=== PATIENT | female | born 1975 | race Caucasian/White ===

== ENCOUNTER → 2016-12-29 | Outpatient (CLI) | payer MEDICAID ==
[~2016-12-29] MED LIST: ASPI1TAB15 PO; ATOR40TA75 PO; CLON0.2T; FOLI1TAB4; KLON0.5T PO; LISI10TA4 PO; METO50TA7 PO; PLAV1TAB2 PO; SERT50TA PO; TYLE325C PO; ZOLO25TA
== END ==
LOC: M OUTALCOH 07:42
PROVIDERS: ATTEND Psychiatry & Neurology Psychiatry
DX: F10.10 Alcohol abuse, uncomplicated (principal)

== ENCOUNTER → 2017-01-12 | Outpatient (RCR) | payer MEDICAID | LOC: M OUTALCOH 01-05 10:46 | PROVIDERS: ATTEND Psychiatry & Neurology Psychiatry | DX: F10.10 Alcohol abuse, uncomplicated (principal) ==

== ENCOUNTER 2017-02-27 13:17 | Emergency (ER) | payer MEDICAID, OTHER ==
[~2017-02-27] VITALS: Ht 165.1 cm; Wt 56.4 kg
[2017-02-27] MEDS ORDERED: ZOLO25TA (13:36)
[2017-02-27] MEDS ORDERED: CLON0.2T (13:36)
[2017-02-27] MEDS ORDERED: FOLI1TAB4 (13:36)
[2017-02-27] MEDS ORDERED: LORazepam 2 MG/ML VIAL (J2060) IV STA (14:18)
[2017-02-27] MEDS ORDERED: ONDANSETRON 4MG/2ML VIAL (J2405) IV ONE (14:30)
[2017-02-27] MEDS ORDERED: NS 1,000 ML IV ONE ×2 (14:30→16:45)
[2017-02-27 14:56] LABS: BASO % 0.4 % (0.0-1.0); EOS % 0.1 % (0.0-3.0); LARGE UNSTAINED CELL # 0.1 K/mm3 (0.0-0.4); LARGE UNSTAINED CELL % 1.5 % (0.0-4.0); LYMPH # 1.3 K/mm3 (1.5-4.5); LYMPH % 14.5 % (24.0-44.0); MEAN CORPUSCULAR HEMOGLOBIN 33.4 pg (27.0-33.0); MEAN CORPUSCULAR HGB CONC 33.1 g/dl (32.0-36.5); MEAN CORPUSCULAR VOLUME 100.9 fl (80.0-96.0); MONO # 0.4 K/mm3 (0.0-0.8); NEUTROPHILS # 6.5 K/mm3 (1.8-7.7); NEUTROPHILS % 78.5 % (36.0-66.0); PLATELET COUNT, AUTOMATED 213 k/mm3 (150-450); RED CELL DISTRIBUTION WIDTH 13.3 % (11.5-14.5); WHITE BLOOD COUNT 8.2 K/mm3 (4.0-10.0)
[2017-02-27 15:24] LABS: ALBUMIN 4.5 GM/DL (3.2-5.2); ALKALINE PHOSPHATASE 183 U/L (45-117); ALT/SGPT 27 U/L (12-78); ANION GAP 14 MEQ/L (8-16); AST/SGOT 21 U/L (15-37); BILIRUBIN,DIRECT 0.3 MG/DL (0.0-0.2); BILIRUBIN,TOTAL 1.2 MG/DL (0.2-1.0); BLOOD UREA NITROGEN 16 MG/DL (7-18); CALCIUM LEVEL 9.6 MG/DL (8.5-10.1); CARBON DIOXIDE LEVEL 26 MEQ/L (21-32); CHLORIDE LEVEL 99 MEQ/L (98-107); CREATININE FOR GFR 0.68 MG/DL (0.55-1.02); GLOMERULAR FILTRATION RATE > 60.0 (>58); GLUCOSE, FASTING 136 MG/DL (70-105); POTASSIUM SERUM 3.8 MEQ/L (3.5-5.1); SODIUM LEVEL 139 MEQ/L (136-145); TOTAL PROTEIN 8.6 GM/DL (6.4-8.2)
[2017-02-27 16:09] LABS: CONTROL LINE HCG INT CTR LINE PRESENT
[2017-02-27] MEDS ORDERED: TYLE325C PO (16:36)
[2017-02-27] MEDS ORDERED: ASPIRIN 81 MG CHEW TABLET PO ONE (17:30)
[2017-02-27] MEDS ORDERED: ISOVUE-370 76% 100ML VIAL (Q9967) As Ordered ONE (17:42)
--- NOTE | 2017-02-27 18:14 | REP ---
Clinical: Chest and epigastric pain . Technique: Axial contrast enhanced images from the thoracic inlet to the upper abdomen using 100 ml Isovue 370 intravenous contrast material with multiplanar re-formations. Findings: Satisfactory enhancement of the pulmonary vasculature is achieved and no filling defects are identified to suggest pulmonary embolus. Further evaluation of the mediastinum demonstrates normal thoracic aorta, heart and pericardium. The bilateral lung dejesus demonstrate very minimal apical emphysematous changes as well as minimal scattered scarring and trace bibasilar atelectasis (left greater than right). No pleural effusion. No pneumothorax. Tracheobronchial tree is patent. No nodule or mass lesion is identified. No adenopathy noted. Surrounding musculoskeletal structures intact Impression: No evidence for pulmonary embolus. Trace bibasilar atelectasis (left greater than right). No acute mediastinal or pleural parenchymal process. Signed by Bentley Oreilly MD 02/27/2017 06:06 P
[2017-02-27] MEDS ORDERED: cloNIDine 0.2 MG TAB PO ONE (18:30)
[2017-02-27 18:32] VITALS: BP 158/99
[2017-02-27] MEDS ORDERED: LABETALOL HCL 100 MG/20 ML VIAL IV STA (18:48)
[2017-02-27 20:59] VITALS: BP 108/73
[2017-02-27 21:27] LABS: METHADONE URINE NEGATIVE (NEGATIVE)
--- NOTE | 2017-02-28 17:21 | ECGEPIP ---
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
--- NOTE | 2017-02-28 17:23 | ECGEPIP ---
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
== END 2017-02-27 21:21 | disposition short-term general hospital (02) ==
LOC: M ED 13:17
DX: R11.10 Vomiting, unspecified (principal); R94.31 Abnormal electrocardiogram [ECG] [EKG]; F43.12 Post-traumatic stress disorder, chronic
CPT/HCPCS: 36415; 71275; 80048; 80076; 80307; 82550; 82553; 83690; 84703; 85025; 93000; 96361; 96374; 96375; 99285; J2060; J2405; Q9967

== ENCOUNTER 2017-04-09 13:38 | Emergency (ER) | payer OTHER ==
[~2017-04-09] VITALS: Ht 167.6 cm; Wt 56.0 kg
[~2017-04-09 13:38] MED LIST changes: -ASPI1TAB15 PO; -ATOR40TA75 PO; -KLON0.5T PO; -LISI10TA4 PO; -METO50TA7 PO; -PLAV1TAB2 PO; -SERT50TA PO
[2017-04-09] MEDS ORDERED: KLON0.5T PO (14:19)
[2017-04-09 15:15] LABS: MEAN CORPUSCULAR HEMOGLOBIN 32.7 pg (27.0-33.0); MEAN CORPUSCULAR HGB CONC 33.9 g/dl (32.0-36.5); MEAN CORPUSCULAR VOLUME 96.3 fl (80.0-96.0); PLATELET COUNT, AUTOMATED 246 10^3/uL (150-450); RED CELL DISTRIBUTION WIDTH 13.1 % (11.5-14.5)
[2017-04-09] MEDS ORDERED: PLAV1TAB2 PO (15:18)
[2017-04-09] MEDS ORDERED: SERT50TA PO (15:18)
[2017-04-09] MEDS ORDERED: METO50TA7 PO (15:18)
[2017-04-09] MEDS ORDERED: LISI10TA4 PO (15:18)
[2017-04-09] MEDS ORDERED: ATOR40TA75 PO (15:18)
[2017-04-09] MEDS ORDERED: ASPI1TAB15 PO (15:18)
[2017-04-09 15:35] LABS: METHADONE URINE NEGATIVE (NEGATIVE)
[2017-04-09 15:47] LABS: ALBUMIN 3.5 GM/DL (3.2-5.2); ALBUMIN/GLOBULIN RATIO 1.03 (1.00-1.93); ALKALINE PHOSPHATASE 190 U/L (45-117); ALT/SGPT 47 U/L (12-78); ANION GAP 6 MEQ/L (8-16); AST/SGOT 12 U/L (15-37); BILIRUBIN,DIRECT < 0.1 MG/DL (0.0-0.2); BILIRUBIN,TOTAL 0.2 MG/DL (0.2-1.0); BLOOD UREA NITROGEN 3 MG/DL (7-18); CALCIUM LEVEL 8.2 MG/DL (8.5-10.1); CARBON DIOXIDE LEVEL 32 MEQ/L (21-32); CHLORIDE LEVEL 103 MEQ/L (98-107); CREATININE FOR GFR 0.54 MG/DL (0.55-1.02); GLOMERULAR FILTRATION RATE > 60.0 (>58); GLUCOSE, FASTING 113 MG/DL (70-105); POTASSIUM SERUM 3.8 MEQ/L (3.5-5.1); SODIUM LEVEL 141 MEQ/L (136-145); TOTAL PROTEIN 6.9 GM/DL (6.4-8.2)
[2017-04-09] MEDS ORDERED: ATORVASTATIN 20 MG TAB PO ONE (21:30)
[2017-04-09 23:15] VITALS: BP 106/74
== END 2017-04-09 23:20 | disposition home or self-care (01) ==
LOC: M ED 13:38
DX: F10.220 Alcohol dependence with intoxication, uncomplicated (principal); F33.9 Major depressive disorder, recurrent, unspecified; F41.9 Anxiety disorder, unspecified; F43.10 Post-traumatic stress disorder, unspecified; F17.210 Nicotine dependence, cigarettes, uncomplicated

== ENCOUNTER 2017-06-14 02:02 | Emergency (ER) | payer OTHER ==
[2017-06-14 03:16] LABS: BASO # 0.1 10^3/uL (0.0-0.2); BASO % 0.4 % (0.0-1.0); EOS # 0.3 10^3/uL (0.0-0.50); EOS % 2.1 % (0.0-3.0); HEMATOCRIT 37.2 % (36.0-47.0); HEMOGLOBIN 12.7 g/dl (12.0-16.0); IMMATURE GRANULOCYTE # 0.1 10^3/uL (0-0); IMMATURE GRANULOCYTE % 0.5 % (0-0); LYMPH % 17.3 % (24.0-44.0); MEAN CORPUSCULAR HGB CONC 34.1 g/dl (32.0-36.5); MEAN CORPUSCULAR VOLUME 99.7 fl (80.0-96.0); MONO # 0.5 10^3/uL (0.0-0.8); MONO % 4.3 % (0.0-5.0); NEUTROPHILS # 8.8 10^3/uL (1.8-7.7); NEUTROPHILS % 75.4 % (36.0-66.0); PLATELET COUNT, AUTOMATED 162 10^3/uL (150-450); RED BLOOD COUNT 3.73 10^6/uL (4.00-5.40); RED CELL DISTRIBUTION WIDTH 15.9 % (11.5-14.5); WHITE BLOOD COUNT 11.7 10^3/uL (4.0-10.0)
[2017-06-14] MEDS: ONDANSETRON 4MG/2ML VIAL (J2405) IV (03:16)
[2017-06-14] MEDS: LORazepam 2 MG/ML VIAL (J2060) IV (03:17)
[2017-06-14 03:41] LABS: ANION GAP 11 MEQ/L (8-16); BLOOD UREA NITROGEN 16 MG/DL (7-18); CALCIUM LEVEL 8.5 MG/DL (8.5-10.1); CARBON DIOXIDE LEVEL 28 MEQ/L (21-32); CHLORIDE LEVEL 99 MEQ/L (98-107); CK-MB VALUE MASS 2.2 NG/ML (0.0-3.6); CPK CREATINE PHOSPHOKINASE 129 U/L (26-192); GLOMERULAR FILTRATION RATE > 60.0 (>58); GLUCOSE, FASTING 108 MG/DL (70-105); POTASSIUM SERUM 3.2 MEQ/L (3.5-5.1); SODIUM LEVEL 138 MEQ/L (136-145); TROPONIN I 0.02 NG/ML (< 0.10)
[2017-06-14 06:00] LABS: ETHYL ALCOHOL (ETHANOL) < 0.003 % (0.000-0.010)
[2017-06-14] MEDS: METOCLOPRAMIDE INJ 10MG/2ML VIAL (J2765) IV (08:39)
[2017-06-14 10:13] LABS: CK-MB VALUE MASS 2.9 NG/ML (0.0-3.6); CPK CREATINE PHOSPHOKINASE 111 U/L (26-192); MB/CK RELATIVE INDEX 2.61 (< OR =4); TROPONIN I 0.03 NG/ML (< 0.10)
== END 2017-06-14 11:17 | disposition home or self-care (01) ==
LOC: M ED 02:02
DX: R07.9 Chest pain, unspecified (principal); R11.2 Nausea with vomiting, unspecified; I51.9 Heart disease, unspecified; Z79.899 Other long term (current) drug therapy; Z79.82 Long term (current) use of aspirin; Z79.01 Long term (current) use of anticoagulants; Z88.1 Allergy status to other antibiotic agents; Z88.2 Allergy status to sulfonamides; F17.210 Nicotine dependence, cigarettes, uncomplicated
CPT/HCPCS: J2405

== ENCOUNTER 2018-03-28 08:53 | Emergency (ER) | payer OTHER ==
[2018-03-28] MEDS: ALPRAZolam 0.25 MG TAB PO (09:15)
[2018-03-28] MEDS: SUCRALFATE SUSP 1GM/10ML UD PO (09:15)
[2018-03-28] MEDS: NITROGLYCERIN 0.3 MG SUBL TAB SL ×2 (09:20→09:28)
[2018-03-28 09:24] LABS: BASO # 0.1 10^3/uL (0.0-0.2); BASO % 1.1 % (0.0-1.0); EOS # 0.1 10^3/uL (0.0-0.50); EOS % 0.8 % (0.0-3.0); HEMATOCRIT 39.5 % (36.0-47.0); HEMOGLOBIN 13.8 g/dl (12.0-15.5); IMMATURE GRANULOCYTE % 0.3 % (0-3.0); LYMPH # 1.5 10^3/uL (1.5-4.5); LYMPH % 19.8 % (24.0-44.0); MEAN CORPUSCULAR HEMOGLOBIN 35.3 pg (27.0-33.0); MEAN CORPUSCULAR HGB CONC 34.9 g/dl (32.0-36.5); MONO # 0.4 10^3/uL (0.0-0.8); MONO % 4.8 % (0.0-5.0); NEUTROPHILS # 5.4 10^3/uL (1.8-7.7); NEUTROPHILS % 73.2 % (36.0-66.0); PLATELET COUNT, AUTOMATED 205 10^3/uL (150-450); RED BLOOD COUNT 3.91 10^6/uL (4.00-5.40); RED CELL DISTRIBUTION WIDTH 15.2 % (11.5-14.5); WHITE BLOOD COUNT 7.4 10^3/uL (4.0-10.0)
[2018-03-28 09:38] LABS: INR 1.23; PROTHROMBIN TIME 15.7 SECONDS (12.1-14.4)
[2018-03-28 10:17] LABS: ALBUMIN 3.7 GM/DL (3.2-5.2); ALBUMIN/GLOBULIN RATIO 1.06 (1.00-1.93); ALKALINE PHOSPHATASE 159 U/L (45-117); ALT/SGPT 22 U/L (12-78); ANION GAP 11 MEQ/L (8-16); AST/SGOT 21 U/L (7-37); BILIRUBIN,DIRECT 0.1 MG/DL (0.0-0.2); BILIRUBIN,TOTAL 0.4 MG/DL (0.2-1.0); BLOOD UREA NITROGEN 7 MG/DL (7-18); CALCIUM LEVEL 8.9 MG/DL (8.5-10.1); CARBON DIOXIDE LEVEL 34 MEQ/L (21-32); CHLORIDE LEVEL 97 MEQ/L (98-107); CK-MB VALUE MASS < 1.0 NG/ML (<3.6); CPK CREATINE PHOSPHOKINASE 71 U/L (26-192); CREATININE FOR GFR 0.75 MG/DL (0.55-1.30); ETHYL ALCOHOL (ETHANOL) 0.006 % (0.000-0.010); GLOMERULAR FILTRATION RATE > 60.0 (>58); GLUCOSE, FASTING 113 MG/DL (70-100); LIPASE 161 U/L (73-393); MAGNESIUM LEVEL 1.8 MG/DL (1.8-2.4); MB/CK RELATIVE INDEX 1.41 (< OR =4); NT-PRO BNP 880 PG/ML (<125); POTASSIUM SERUM 2.8 MEQ/L (3.5-5.1); SODIUM LEVEL 142 MEQ/L (136-145); THYROID STIMULATING HORMONE 0.957 uIU/ML (0.358-3.740); TOTAL PROTEIN 7.2 GM/DL (6.4-8.2); TROPONIN I < 0.02 NG/ML (< 0.10)
[2018-03-28] MEDS: PANTOPRAZOLE 40MG INJ (PROTONIX) (C9113) IV (10:40)
[2018-03-28] MEDS: GI COCKTAIL 50ML BTL(HYOSCYAMINE/MAALOX/LIDOCAINE VISCOUS)(1:3:1) PO (10:40)
[2018-03-28] MEDS: METOPROLOL TART 50 MG TAB PO (10:41)
[2018-03-28] MEDS: POTASSIUM CHLORIDE 10 MEQ SR TABLET PO ×2 (10:41→16:30)
[2018-03-28 14:36] LABS: CK-MB VALUE MASS < 1.0 NG/ML (<3.6); CPK CREATINE PHOSPHOKINASE 57 U/L (26-192); MB/CK RELATIVE INDEX 1.75 (< OR =4); TROPONIN I < 0.02 NG/ML (< 0.10)
== END 2018-03-28 17:08 | disposition home or self-care (01) ==
LOC: M ED 08:53
DX: E87.6 Hypokalemia (principal); R10.9 Unspecified abdominal pain; R94.31 Abnormal electrocardiogram [ECG] [EKG]; I11.9 Hypertensive heart disease without heart failure; E78.5 Hyperlipidemia, unspecified; F33.9 Major depressive disorder, recurrent, unspecified; F41.9 Anxiety disorder, unspecified; F43.10 Post-traumatic stress disorder, unspecified; F17.200 Nicotine dependence, unspecified, uncomplicated; Z79.01 Long term (current) use of anticoagulants; Z79.82 Long term (current) use of aspirin; Z82.49 Family history of ischemic heart disease and other diseases of the circulatory system; Z88.1 Allergy status to other antibiotic agents; Z88.2 Allergy status to sulfonamides
CPT/HCPCS: C9113

== ENCOUNTER 2018-12-01 08:29 | Emergency (ER) | payer OTHER ==
[~2018-12-01] VITALS: Ht 167.6 cm; Wt 57.7 kg
[~2018-12-01 08:29] MED LIST changes: +ASPI1TAB15 PO; +ASPI81TAEC PO; +ATOR40TA75 PO; +FOLI1TAB11; -FOLI1TAB4; +KLON0.5T PO; +LISI10TA4 PO; +METO50TA7 PO; +PLAV1TAB2 PO; +PROM50TA4 PO; +SERT-141 PO; +SUCR1SS PO
[2018-12-01] MEDS ORDERED: HYDR-3363 PO (08:47)
[2018-12-01] MEDS ORDERED: TRAZ-163 PO (08:47)
[2018-12-01] MEDS ORDERED: ASPIRIN 81 MG CHEW TABLET PO ONE (09:00)
[2018-12-01 09:18] LABS: BASO # 0.1 10^3/uL (0.0-0.2); BASO % 0.7 % (0.0-1.0); EOS % 0.2 % (0.0-3.0); HEMOGLOBIN 13.7 g/dl (12.0-15.5); LYMPH # 2.4 10^3/uL (1.5-4.5); LYMPH % 21.3 % (24.0-44.0); MEAN CORPUSCULAR HEMOGLOBIN 34.1 pg (27.0-33.0); MEAN CORPUSCULAR HGB CONC 35.1 g/dl (32.0-36.5); MONO # 0.5 10^3/uL (0.0-0.8); MONO % 4.7 % (0.0-5.0); NEUTROPHILS # 8.1 10^3/uL (1.8-7.7); NEUTROPHILS % 72.8 % (36.0-66.0); PLATELET COUNT, AUTOMATED 171 10^3/uL (150-450); RED BLOOD COUNT 4.02 10^6/uL (4.00-5.40); WHITE BLOOD COUNT 11.1 10^3/uL (4.0-10.0)
[2018-12-01] MEDS: NITROGLYCERIN 0.4 MG SUBL TABLET SL PRN ×3 (09:24→16:35)
[2018-12-01 09:43] LABS: INR 1.13; PROTHROMBIN TIME 14.2 SECONDS (11.8-14.0)
[2018-12-01] MEDS ORDERED: GI COCKTAIL 50ML BTL(HYOSCYAMINE/MAALOX/LIDOCAINE VISCOUS)(1:3:1) PO ONE (09:45)
[2018-12-01 09:51] VITALS: BP 172/111
[2018-12-01 09:56] LABS: ALBUMIN 3.8 GM/DL (3.2-5.2); ALT/SGPT 16 U/L (12-78); BILIRUBIN,DIRECT 0.2 MG/DL (0.0-0.2); BILIRUBIN,TOTAL 1.4 MG/DL (0.2-1.0); BLOOD UREA NITROGEN 27 MG/DL (7-18); CALCIUM LEVEL 8.9 MG/DL (8.5-10.1); CARBON DIOXIDE LEVEL 27 MEQ/L (21-32); CHLORIDE LEVEL 99 MEQ/L (98-107); CK-MB VALUE MASS < 1.0 NG/ML (<3.6); CPK CREATINE PHOSPHOKINASE 56 U/L (26-192); CREATININE FOR GFR 0.84 MG/DL (0.55-1.30); GLOMERULAR FILTRATION RATE > 60.0 (>58); GLUCOSE, FASTING 96 MG/DL (70-100); LIPASE 169 U/L (73-393); MB/CK RELATIVE INDEX 1.79 (< OR =4); NT-PRO BNP 2180 PG/ML (<125); POTASSIUM SERUM 2.7 MEQ/L (3.5-5.1); SODIUM LEVEL 138 MEQ/L (136-145); TOTAL PROTEIN 7.5 GM/DL (6.4-8.2); TROPONIN I < 0.02 NG/ML (< 0.10)
--- NOTE | 2018-12-01 09:57 | REP ---
CHEST SINGLE VIEW: There is no evidence of acute infiltrate. No pleural effusion is seen. The heart is normal in size. The mediastinal silhouette is unremarkable. The visualized osseous structures are intact. IMPRESSION: No acute pulmonary disease. Electronically Signed by Henry Carter MD 12/01/2018 03:13 P
[2018-12-01] MEDS ORDERED: KCL 10MEQ/100ML SWI (KRUN) 10 MEQ in APPROPRIATE DILUENT 1 EA IV ONE ×2 (10:00→18:45)
[2018-12-01] MEDS ORDERED: NS 1,000 ML IV ONE ×2 (10:00→16:30)
[2018-12-01] MEDS ORDERED: POTASSIUM CHLORIDE 10 MEQ SR TABLET PO ONE ×2 (10:00→18:45)
[2018-12-01] MEDS ORDERED: hydrOXYzine 50 MG TAB PO STA (10:18)
[2018-12-01] MEDS ORDERED: SERTRALINE HCL 50 MG TAB PO ONE (10:30)
[2018-12-01 10:40] LABS: MAGNESIUM LEVEL 1.7 MG/DL (1.8-2.4); PHOSPHORUS LEVEL 3.1 MG/DL (2.5-4.9)
[2018-12-01] MEDS ORDERED: MAG SULF 1GM/100ML (MAG RUN) 1 GM in APPROPRIATE DILUENT 1 EA IV ONE (11:00)
[2018-12-01] MEDS ORDERED: PROMETHAZINE INJ 25 MG/ML VIAL (J2550) IV ONE (11:30)
[2018-12-01] MEDS ORDERED: CHLO125TA PO (16:28)
[2018-12-01] MEDS ORDERED: LORazepam 1 MG TAB PO STA (16:59)
[2018-12-01] MEDS ORDERED: ONDANSETRON 4MG/2ML VIAL (J2405) IV ONE ×2 (17:00→19:00)
[2018-12-01 18:33] LABS: BLOOD UREA NITROGEN 24 MG/DL (7-18); CALCIUM LEVEL 7.4 MG/DL (8.5-10.1); CARBON DIOXIDE LEVEL 26 MEQ/L (21-32); CHLORIDE LEVEL 105 MEQ/L (98-107); CK-MB VALUE MASS < 1.0 NG/ML (<3.6); CPK CREATINE PHOSPHOKINASE 45 U/L (26-192); CREATININE FOR GFR 0.64 MG/DL (0.55-1.30); GLOMERULAR FILTRATION RATE > 60.0 (>58); GLUCOSE, FASTING 94 MG/DL (70-100); MB/CK RELATIVE INDEX 2.22 (< OR =4); POTASSIUM SERUM 2.9 MEQ/L (3.5-5.1); SODIUM LEVEL 139 MEQ/L (136-145); TROPONIN I 0.02 NG/ML (< 0.10)
[2018-12-01] MEDS ORDERED: POTA20TA6 PO (18:48)
[2018-12-01] MEDS ORDERED: SPIRONOLACTONE 12.5MG PER 1/2 TABLET PO STA (18:51)
[2018-12-01] MEDS ORDERED: SPIR-10 PO (18:53)
[2018-12-01] MEDS ORDERED: CHLORTHALIDONE 12.5MG PER 1/2 TABLET PO ONE (19:00)
--- NOTE | 2018-12-01 19:31 | ECGEPIP ---
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
--- NOTE | 2018-12-01 19:37 | ECGEPIP ---
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
[2018-12-01 20:59] VITALS: BP 178/118
== END 2018-12-01 20:59 | disposition home or self-care (01) ==
LOC: EDBD 08:29 → M ED 08:29
DX: I10 Essential (primary) hypertension (principal); R10.13 Epigastric pain; E78.5 Hyperlipidemia, unspecified; F41.9 Anxiety disorder, unspecified; F43.10 Post-traumatic stress disorder, unspecified; Z79.899 Other long term (current) drug therapy; Z79.82 Long term (current) use of aspirin; Z88.1 Allergy status to other antibiotic agents; Z88.2 Allergy status to sulfonamides; F17.210 Nicotine dependence, cigarettes, uncomplicated
CPT/HCPCS: 36415; 71045; 80048; 80076; 82550; 82553; 83690; 83735; 83880; 84100; 84443; 85025; 85610; 93005; 93041; 94760; 96361; 96365; 96366; 96375; 99285; J2405; J3475

== ENCOUNTER → 2019-11-14 | Outpatient (REF) ==
[~2019-11-14] MED LIST changes: +CHLO125TA PO; +HYDR-3363 PO; +POTA20TA6 PO; +SPIR-10 PO; +TRAZ-257 PO
== END ==
LOC: M LAB 10:34